=== PATIENT | male | born 1960 | race Caucasian/White ===

== ENCOUNTER 2016-12-15 08:50 | Outpatient (CLI) | payer BC ==
[2016-12-15 09:33] LABS: #Basophils 0.1 thou/uL (0.0-0.2); #Eosinphils 0.3 thou/uL (0.0-0.7); #Lymphocytes 2.8 thou/uL (1.20-3.40); #Monocytes 0.7 thou/uL (0.11-0.59); %Basophils 1.2 % (0.0-1.0); %Eosinophils 3.1 % (0.0-10.0); %Monocytes 8.1 % (0.0-10.0); Hematocrit 50.9 % (42.0-52.0); Red Blood Cell (RBC) Count 5.57 mill/uL (4.70-6.10); White Blood Cell (WBC) Count 8.8 thou/uL (4.8-10.8)
[2016-12-15 09:43] LABS: ALT (SGPT) 42 U/L (0-55); AST (SGOT) 26 U/L (5-34); Alkaline Phosphatase 101 U/L (40-150); Anion Gap 17 mmol/L (10-20); BUN (Urea Nitrogen) 11 mg/dL (8.4-25.7); Bilirubin, Total 0.9 mg/dL (0.2-1.2); Calc. Creatinine Clearance 0 mL/min (70-130); Calcium 9.9 mg/dL (7.8-10.44); Carbon Dioxide 23 mmol/L (22-29); Chloride 105 mmol/L (98-107); Estimated GFR-MDRD 70; Globulin 3.3 g/dL (2.4-3.5); LDL Cholesterol, Calculated 123 mg/dL; Protein, Total 7.7 g/dL (6.0-8.3)
== END 2016-12-15 08:51 | disposition home or self-care (01) ==
LOC: BURLAB 08:50
PROVIDERS: ATTEND Family Medicine
DX: K22.70 Barrett's esophagus without dysplasia (principal); I10 Essential (primary) hypertension
CPT/HCPCS: 36415; 80053; 80061; 85025

== ENCOUNTER 2017-03-17 09:09 | Outpatient (CLI) | payer BC ==
[2017-03-17 10:32] LABS: Hemoglobin A1c 7.3 % (4.0-6.0)
[2017-03-17 18:03] LABS: Creatinine, Urine 160.04 mg/dL (63-166); Microalbumin Urine 3.8 mg/dL (0.5-50.0); Microalbumin/Creat Ratio 23.7 mg/g (Less than 30)
== END 2017-03-17 09:10 | disposition home or self-care (01) ==
LOC: BURLAB 09:09
PROVIDERS: ATTEND Family Medicine
DX: E11.65 Type 2 diabetes mellitus with hyperglycemia (principal)
CPT/HCPCS: 36415; 82043; 83036

== ENCOUNTER 2021-03-09 07:40 | Outpatient (CLI) | payer OTHER ==
[2021-03-09 11:21] LABS: Hemoglobin A1c 10.6 % (4.0-6.0)
[2021-03-09 11:36] LABS: Cardiac Risk 4.8 (Less than 4.5)
[2021-03-09 11:50] LABS: Creatinine, Urine 209.94 mg/dL (63-166); Microalbumin Urine 6.1 mg/dL (0.5-50.0); Microalbumin/Creat Ratio 29.1 mg/g (Less than 30)
== END 2021-03-09 07:41 | disposition home or self-care (01) ==
LOC: BURLAB 07:40
PROVIDERS: ATTEND Family Medicine
DX: E11.65 Type 2 diabetes mellitus with hyperglycemia (principal); I10 Essential (primary) hypertension
CPT/HCPCS: 36415; 80061; 82043; 83036

== ENCOUNTER 2023-12-06 07:44 | Outpatient (CLI) | payer BC ==
[2023-12-06 08:20] LABS: #Basophils 0.1 thou/uL (0.0-0.2); #Eosinphils 0.4 thou/uL (0.0-0.7); #Lymphocytes 2.8 thou/uL (1.20-3.40); #Monocytes 0.7 thou/uL (0.11-0.59); #Neutrophils 4.4 thou/uL (1.40-6.50); %Basophils 1.1 % (0.0-1.0); %Eosinophils 4.2 % (0.0-10.0); %Lymphocytes 33.3 % (21.0-51.0); %Monocytes 8.8 % (0.0-10.0); %Neutrophils 52.6 % (42.0-75.0); Hematocrit 53.1 % (42.0-52.0); Hemoglobin 17.6 g/dL (14.0-18.0); Mean Corpuscular HGB CONC 33.2 g/dL (32.0-36.0); Mean Corpuscular Hemoglobin 28.5 pg (27.0-31.0); Mean Corpuscular Volume 85.8 fl (78.0-98.0); Mean Platelet Volume 8.9 fL (7.4-10.4); Platelet Count 224 10x3/uL (130-400); RBC Distribution Width 11.7 % (11.5-14.5); Red Blood Cell (RBC) Count 6.18 mill/uL (4.70-6.10); White Blood Cell (WBC) Count 8.4 10x3/uL (4.8-10.8)
[2023-12-06 09:22] LABS: ALT (SGPT) 33 U/L (8-55); AST (SGOT) 20 U/L (5-34); Albumin 4.3 g/dL (3.4-4.8); Alkaline Phosphatase 102 U/L (40-110); Anion Gap 14 mmol/L (10-20); BUN (Urea Nitrogen) 12 mg/dL (8.4-25.7); Bilirubin, Total 0.6 mg/dL (0.2-1.2); Calc. Creatinine Clearance 0 mL/min (70-130); Calcium 9.7 mg/dL (7.8-10.44); Carbon Dioxide 28 mmol/L (23-31); Cardiac Risk 4.7 (Less than 4.5); Chloride 101 mmol/L (98-107); Cholesterol 206 mg/dl (< 200 Desired); Estimated GFR 94; Globulin 2.9 g/dL (2.4-3.5); Glucose 163 mg/dL (80-115); HDL Cholesterol 44 mg/dL (>60 Neg Risk); LDL Cholesterol, Calculated 130 mg/dL; Potassium 4.3 mmol/L (3.5-5.1); Protein, Total 7.2 g/dL (5.8-8.1); Sodium 139 mmol/L (136-145); Triglycerides 162 mg/dL (Less than 150); Uric Acid 3.9 mg/dL (3.5-7.2)
[2023-12-06 11:55] LABS: Hemoglobin A1c 10.6 % (4.0-6.0)
[2023-12-06 12:34] LABS: Creatinine, Urine 226.14 mg/dL (63-166)
[2023-12-06 12:36] LABS: Microalbumin Urine 26.5 mg/dL (0.5-50.0); Microalbumin/Creat Ratio 117.2 mg/g (Less than 30)
== END 2023-12-06 07:45 | disposition home or self-care (01) ==
LOC: BURRAD 07:44
PROVIDERS: ATTEND Family Medicine
DX: E11.65 Type 2 diabetes mellitus with hyperglycemia (principal); M25.571 Pain in right ankle and joints of right foot; E78.2 Mixed hyperlipidemia; M67.873 Other specified disorders of tendon, right ankle and foot; Z79.899 Other long term (current) drug therapy
CPT/HCPCS: 36415; 80053; 80061; 82043; 83036; 84550; 85025

== ENCOUNTER 2024-11-20 14:11 | Outpatient (CLI) | payer BC | END 2024-11-20 14:12 | disposition home or self-care (01) | LOC: BURRAD 14:11 | PROVIDERS: ATTEND Family Medicine | DX: M51.360 Other intervertebral disc degeneration, lumbar region with discogenic back pain only (principal); M47.816 Spondylosis without myelopathy or radiculopathy, lumbar region; Z98.890 Other specified postprocedural states | CPT/HCPCS: 72100 ==